=== PATIENT | male | born 2000 | race Caucasian/White ===

== ENCOUNTER 2019-02-09 21:58 | Emergency (ER) | payer OTHER ==
[~2019-02-09] VITALS: Ht 182.9 cm; Wt 68.0 kg
[2019-02-09 22:09] VITALS: BP 127/72
[2019-02-09] MEDS ORDERED: NACL 0.9% 1,000 ML IV ONE (23:45)
[2019-02-10 01:14] VITALS: BP 107/68
== END 2019-02-10 01:14 | disposition home or self-care (01) ==
LOC: MED 21:58
DX: F10.129 Alcohol abuse with intoxication, unspecified (principal); R11.2 Nausea with vomiting, unspecified; F12.90 Cannabis use, unspecified, uncomplicated
CPT/HCPCS: 36415; 96360; 99283; G0482; J7030